=== PATIENT | male | born 1990 | race African-American/Black ===

== ENCOUNTER 2019-03-06 00:53 | Emergency (ER) | payer MEDICAID ==
[~2019-03-06] VITALS: Ht 182.9 cm; Wt 84.0 kg
[2019-03-06 04:13] VITALS: BP 107/66
[2019-03-06] MEDS ORDERED: ONDANSETRON 4MG ODT PO ONE (05:30)
== END 2019-03-06 10:15 | disposition home or self-care (01) ==
LOC: ER 03:04
DX: Z59.0 Homelessness (principal); F33.9 Major depressive disorder, recurrent, unspecified; F17.210 Nicotine dependence, cigarettes, uncomplicated
CPT/HCPCS: 99283; Q0162

== ENCOUNTER 2019-03-10 23:31 | Emergency (ER) | payer MEDICAID ==
[~2019-03-10] VITALS: Ht 185.4 cm; Wt 77.0 kg
[2019-03-11 07:29] LABS: BASOPHILS % 0.9 % (0.0-2.0); EOSINOPHILS % 9.2 % (0.0-5.0); HEMATOCRIT. 37.7 % (42.0-52.0); MEAN CORPUSCULAR HEMOGLOBIN 31.9 pg (28.0-32.0); MEAN CORPUSCULAR VOLUME 92.6 fL (80.0-94.0); MEAN PLATELET VOLUME 8.6 fl (7.4-10.4); MONOCYTES % 13.2 % (2.0-8.0); NEUTROPHILS % 29.7 % (40.0-76.0); PLATELET 133 x1000/uL (130-400); RED BLOOD CELL COUNT 4.07 mill/uL (4.7-6.1); RED CELL DISTRIBUTION WIDTH 12.8 % (11.6-14.6)
[2019-03-11 07:40] LABS: CHLORIDE 108 mEq/L (98-107)
[2019-03-11 08:45] VITALS: BP 108/65
== END 2019-03-11 10:23 | disposition home or self-care (01) ==
LOC: ER 23:31
DX: R42 Dizziness and giddiness (principal); R53.83 Other fatigue; Z59.0 Homelessness; F17.290 Nicotine dependence, other tobacco product, uncomplicated
CPT/HCPCS: 36415; 71045; 84484; 93005; 99284; 99406

== ENCOUNTER 2019-04-02 23:04 | Emergency (ER) | payer MEDICAID ==
[~2019-04-02] VITALS: Ht 182.9 cm; Wt 84.0 kg
[2019-04-03 04:58] LABS: BASOPHILS % 0.6 % (0.0-2.0); HEMATOCRIT. 36.2 % (42.0-52.0); HEMOGLOBIN. 12.3 g/dL (14.0-18.0); MEAN CORPUSCULAR HEMOGLOBIN 31.6 pg (28.0-32.0); MEAN CORPUSCULAR VOLUME 93.3 fL (80.0-94.0); MEAN PLATELET VOLUME 7.3 fl (7.4-10.4); MONOCYTES % 7.4 % (2.0-8.0); PLATELET 176 x1000/uL (130-400); RED BLOOD CELL COUNT 3.88 mill/uL (4.7-6.1); RED CELL DISTRIBUTION WIDTH 12.7 % (11.6-14.6)
[2019-04-03 05:06] LABS: CHLORIDE 109 mEq/L (98-107)
[2019-04-03 05:11] LABS: ETHANOL BLOOD < 10 mg/dL
[2019-04-03 06:16] LABS: CLARITY URINE CLEAR (CLEAR); COLOR URINE YELLOW (YELLOW); KETONES URINE NEGATIVE (NEGATIVE); LEUKOCYTE ESTERASE URINE NEGATIVE (NEGATIVE); NITRITE URINE NEGATIVE (NEGATIVE); OCCULT BLOOD URINE NEGATIVE (NEGATIVE); PROTEIN URINE NEGATIVE (NEGATIVE); SPECIFIC GRAVITY URINE 1.027 (1.005-1.030)
[2019-04-03 06:35] LABS: *BARBITURATES SCREEN URINE NEGATIVE (NEGATIVE); *BENZODIAZEPINES SCREEN URINE NEGATIVE (NEGATIVE)
[2019-04-03 06:36] LABS: *AMPHETAMINES SCREEN URINE NEGATIVE (NEGATIVE); *COCAINE SCREEN URINE NEGATIVE (NEGATIVE); METHADONE URINE SCREEN NEGATIVE (NEGATIVE); OPIATES URINE SCREEN NEGATIVE (NEGATIVE); PHENCYCLIDINE URINE SCREEN NEGATIVE (NEGATIVE)
[2019-04-03 06:37] LABS: CANNABINOID URINE SCREEN PRESUMTIVE POSITIVE (NEGATIVE)
[2019-04-03] MEDS ORDERED: OLANZAPINE 10MG TABLET PO ONE (08:00)
[2019-04-03] MEDS ORDERED: LORAZEPAM 1MG TABLET PO ONE (08:00)
[2019-04-03] MEDS ORDERED: LORAZEPAM 2MG/ML CPJ IM ONE (08:30)
[2019-04-03] MEDS ORDERED: OLANZAPINE 10 MG/VIAL IM ONE (08:30)
[2019-04-03 19:44] VITALS: BP 140/95
== END 2019-04-03 19:58 ==
LOC: ER 23:04
DX: F20.0 Paranoid schizophrenia (principal); R45.850 Homicidal ideations; Z91.14 Patient's other noncompliance with medication regimen; Z59.0 Homelessness; F17.210 Nicotine dependence, cigarettes, uncomplicated
CPT/HCPCS: 36415; 80305; 80320; 81003; 99285; J2060; J3490; G0480

== ENCOUNTER 2019-05-21 19:52 | Emergency (ER) | payer MEDICAID ==
[~2019-05-21] VITALS: Ht 185.4 cm; Wt 73.0 kg
[2019-05-21 20:03] VITALS: BP 113/66
== END 2019-05-21 21:02 | disposition home or self-care (01) ==
LOC: ER 19:52
DX: R53.1 Weakness (principal); T73.0XXA Starvation, initial encounter; X58.XXXA Exposure to other specified factors, initial encounter
CPT/HCPCS: 82962; 99283

== ENCOUNTER 2019-05-24 13:03 | Emergency (ER) | payer MEDICAID ==
[~2019-05-24] VITALS: Ht 185.4 cm; Wt 73.0 kg
[2019-05-24 17:36] LABS: BASOPHILS % 0.7 % (0.0-2.0); EOSINOPHILS % 6.9 % (0.0-5.0); HEMOGLOBIN. 13.6 g/dL (14.0-18.0); LYMPHOCYTES % 44.8 % (20.0-50.0); MEAN CORPUSCULAR HEMOGLOBIN 31.4 pg (28.0-32.0); MEAN CORPUSCULAR VOLUME 92.3 fL (80.0-94.0); MEAN PLATELET VOLUME 8.8 fl (7.4-10.4); MONOCYTES % 7.5 % (2.0-8.0); NEUTROPHILS % 40.1 % (40.0-76.0); PLATELET 177 x1000/uL (130-400); RED BLOOD CELL COUNT 4.33 mill/uL (4.7-6.1); RED CELL DISTRIBUTION WIDTH 12.7 % (11.6-14.6)
[2019-05-24 17:43] LABS: CHLORIDE 110 mEq/L (98-107)
[2019-05-24 17:47] LABS: ETHANOL BLOOD < 10 mg/dL
[2019-05-24 18:20] LABS: CLARITY URINE CLEAR (CLEAR); COLOR URINE YELLOW (YELLOW); KETONES URINE NEGATIVE (NEGATIVE); LEUKOCYTE ESTERASE URINE NEGATIVE (NEGATIVE); NITRITE URINE NEGATIVE (NEGATIVE); OCCULT BLOOD URINE NEGATIVE (NEGATIVE); PH URINE >=9.0 (4.5-8.0); PROTEIN URINE NEGATIVE (NEGATIVE); SPECIFIC GRAVITY URINE 1.022 (1.005-1.030)
[2019-05-24 18:28] LABS: *AMPHETAMINES SCREEN URINE NEGATIVE (NEGATIVE); *BARBITURATES SCREEN URINE NEGATIVE (NEGATIVE); *BENZODIAZEPINES SCREEN URINE NEGATIVE (NEGATIVE); *COCAINE SCREEN URINE NEGATIVE (NEGATIVE); METHADONE URINE SCREEN NEGATIVE (NEGATIVE)
[2019-05-24 18:29] LABS: CANNABINOID URINE SCREEN PRESUMTIVE POSITIVE (NEGATIVE); OPIATES URINE SCREEN NEGATIVE (NEGATIVE); PHENCYCLIDINE URINE SCREEN NEGATIVE (NEGATIVE)
[2019-05-24] MEDS ORDERED: LORAZEPAM 0.5MG TABLET PO ONE (19:45)
[2019-05-25] MEDS ORDERED: QUETIAPINE FUMARATE 25MG TABLET PO ONE (01:00)
[2019-05-25 16:47] VITALS: BP 128/77
[2019-05-25] MEDS ORDERED: OLANZAPINE 10MG TABLET PO SCH (21:00)
== END 2019-05-25 17:00 | disposition home or self-care (01) ==
LOC: ER 13:03
DX: R44.0 Auditory hallucinations (principal); D72.819 Decreased white blood cell count, unspecified; D64.9 Anemia, unspecified; F12.10 Cannabis abuse, uncomplicated; F31.9 Bipolar disorder, unspecified
CPT/HCPCS: 36415; 71045; 80305; 80320; 81003; 93005; 99284; G0480

== ENCOUNTER 2019-05-26 22:00 | Emergency (ER) | payer MEDICAID ==
[~2019-05-26] VITALS: Ht 182.9 cm; Wt 77.0 kg
[2019-05-26 23:34] LABS: EOSINOPHILS % 5.9 % (0.0-5.0); HEMATOCRIT. 39.8 % (42.0-52.0); HEMOGLOBIN. 13.7 g/dL (14.0-18.0); LYMPHOCYTES % 48.8 % (20.0-50.0); MEAN CORPUSCULAR HEMOGLOBIN 31.6 pg (28.0-32.0); MEAN CORPUSCULAR VOLUME 91.6 fL (80.0-94.0); MEAN PLATELET VOLUME 8.1 fl (7.4-10.4); NEUTROPHILS % 37.3 % (40.0-76.0); PLATELET 175 x1000/uL (130-400); RED BLOOD CELL COUNT 4.34 mill/uL (4.7-6.1); RED CELL DISTRIBUTION WIDTH 12.6 % (11.6-14.6)
[2019-05-26 23:36] LABS: CHLORIDE 110 mEq/L (98-107)
[2019-05-26 23:40] LABS: ETHANOL BLOOD < 10 mg/dL
[2019-05-26 23:44] LABS: CLARITY URINE CLEAR (CLEAR); COLOR URINE YELLOW (YELLOW); KETONES URINE TRACE (NEGATIVE); LEUKOCYTE ESTERASE URINE NEGATIVE (NEGATIVE); NITRITE URINE NEGATIVE (NEGATIVE); OCCULT BLOOD URINE NEGATIVE (NEGATIVE); PROTEIN URINE NEGATIVE (NEGATIVE)
[2019-05-26 23:53] LABS: *AMPHETAMINES SCREEN URINE NEGATIVE (NEGATIVE); *BARBITURATES SCREEN URINE NEGATIVE (NEGATIVE); *BENZODIAZEPINES SCREEN URINE NEGATIVE (NEGATIVE); *COCAINE SCREEN URINE NEGATIVE (NEGATIVE); METHADONE URINE SCREEN NEGATIVE (NEGATIVE)
[2019-05-26 23:54] LABS: CANNABINOID URINE SCREEN PRESUMTIVE POSITIVE (NEGATIVE); OPIATES URINE SCREEN NEGATIVE (NEGATIVE); PHENCYCLIDINE URINE SCREEN NEGATIVE (NEGATIVE)
[2019-05-28 14:20] VITALS: BP 122/61
== END 2019-05-28 14:30 | disposition home or self-care (01) ==
LOC: ER 22:00
DX: F32.3 Major depressive disorder, single episode, severe with psychotic features (principal); R45.851 Suicidal ideations; R03.0 Elevated blood-pressure reading, without diagnosis of hypertension; Z91.14 Patient's other noncompliance with medication regimen; F12.90 Cannabis use, unspecified, uncomplicated; Z71.6 Tobacco abuse counseling; F17.210 Nicotine dependence, cigarettes, uncomplicated; Z59.0 Homelessness; Z86.59 Personal history of other mental and behavioral disorders
CPT/HCPCS: 36415; 80305; 80320; 81003; 99285; 99406; G0480